=== PATIENT | female | born 1985 | race African-American/Black ===

== ENCOUNTER 2018-05-01 20:26 | Emergency (ER) | payer MEDICAID ==
[~2018-05-01] VITALS: Ht 152.4 cm; Wt 77.1 kg
[~2018-05-01 20:26] MED LIST: AMOXICILLIN500 MG PO; MOTRIN400 MG PO
[2018-05-01 21:10] VITALS: BP 113/69
[2018-05-01] MEDS ORDERED: NKM (21:17)
[2018-05-01] MEDS ORDERED: AUGMENTIN 875-1 EAC1 ORAL (21:32)
[2018-05-01] MEDS ORDERED: PSEUDOEPHEDRINE60 MG PO (21:32)
--- NOTE | 2018-05-01 21:32 | Emergency Room Report ---
History of Present Illness General Chief Complaint: Earache Source: Patient Present Illness HPI Is a 32-year-old female with no significant past medical history. She presents with chief complaint of left ear pain. She had cough and congestion for the last couple weeks. Still with sinus pressure. Now with left ear pain for a week. Denies any fever or chills. Worse with blow her nose. No other complaint. Has not take anything for it. Pain is 6 out of 10. Radiating down her left neck. Also with sore throat. Allergies: Coded Allergies: No Known Allergies (Unverified , 04/30/12) Patient History Past Medical History: none, see triage record Past Surgical History: none Pertinent Family History: none Social History: Denies: smoking Last Menstrual Period: end of MAR Now: No Immunizations: other Reviewed Nursing Documentation: PMH: Agreed; PSxH: Agreed Nursing Documentation-PM Past Medical History: No Stated History Review of Systems Eye: Denies: eye pain, blurred vision ENT: Reports: ear pain, nose congestion, throat pain; Denies: throat swelling Respiratory: Denies: cough, shortness of breath Cardiovascular: Denies: chest pain, palpitations Gastrointestinal: Denies: abdominal pain, diarrhea, nausea, vomiting Musculoskeletal: Denies: back pain, joint pain Skin: Denies: rash Neurological: Denies: headache, numbness Endocrine: Denies: increased thirst, increased urine Hematologic/Lymphatic: Denies: easy bruising All Other Systems: negative except mentioned in HPI Physical Exam Vital Signs Date Time Temp Pulse Resp B/P (MAP) Pulse Ox O2 Delivery O2 Flow Rate FiO2 05/01/18 21:09 98.2 64 14 113/69 99 Room Air vitals normal Sp02 EP Interpretation: reviewed, normal General Appearance: well appearing, no apparent distress, alert Head: normocephalic, atraumatic Eyes: bilateral eye PERRL, bilateral eye EOMI ENT: hearing grossly normal, normal pharynx, other - Left TM with mild erythema and effusion. Right TM with myringitis Neck: full range of motion, supple, no meningismus Respiratory: chest non-tender, lungs clear, normal breath sounds Cardiovascular #1: regular rate, rhythm, no murmur Gastrointestinal: normal bowel sounds, non tender, no mass, no organomegaly, no bruit, non-distended Musculoskeletal: back normal, gait/station normal, normal range of motion Psychiatric: mood/affect normal Skin: warm/dry Medical Decision Making Diagnostic Impression: Primary Impression: Otitis media Qualified Codes: H66.90 - Otitis media, unspecified, unspecified ear ER Course Patient presents with viral URI cooperative by otitis media. No evidence of any sepsis, meningitis, pneumonia or other serious bacterial infection. We'll discharge home. Last Vital Signs Date Time Temp Pulse Resp B/P (MAP) Pulse Ox O2 Delivery O2 Flow Rate FiO2 05/01/18 21:09 98.2 64 14 113/69 99 Room Air Status: unchanged Disposition: HOME, SELF-CARE Condition: Stable Scripts Pseudoephedrine Hcl* (SUDAFED*) 60 Mg Tablet 60 MG PO Q6H, #20 TAB Prov: Hipolito Ryan MD 05/01/18 Amoxicillin/Potassium Clav 875-125* (AUGMENTIN 875-125 TABLET*) 1 Each Tablet 1 TAB ORAL TWICE A DAY, #14 TAB Prov: Hipolito Ryan MD 05/01/18 Patient Instructions: Otitis Media, Adult, [id number] Additional Instructions: Increase fluids. Salt water gargle. Follow-up your doctor in 7 days. Return if worse. Hipolito Ryan MD May 01, 2018 21:32
[2018-05-01 21:37] VITALS: BP 113/69
== END 2018-05-01 22:00 | disposition home or self-care (01) ==
LOC: EMR 21:50
DX: H66.92 Otitis media, unspecified, left ear (principal)
CPT/HCPCS: 99283